=== PATIENT | female | born 1990 | race Caucasian/White ===

== ENCOUNTER 2016-07-07 06:11 | Emergency (ER) | payer OTHER ==
[2016-07-07 07:01] LABS: HEMOGLOBIN 11.1 gm/dl (12.3-15.3); RED BLOOD COUNT 3.72 M/UL (4.00-5.10); WHITE BLOOD COUNT 3.7 K/UL (4.5-11.0)
[2016-07-07 07:23] LABS: BUN/CREATININE RATIO 16 (0-10)
== END 2016-07-07 08:35 | disposition home or self-care (01) ==
LOC: ER1 06:11
PROVIDERS: Family Medicine
DX: F41.9 Anxiety disorder, unspecified (principal); R03.0 Elevated blood-pressure reading, without diagnosis of hypertension; Z79.899 Other long term (current) drug therapy
CPT/HCPCS: 36415; 80053; 82550; 82553; 83874; 84484; 85025; 93005; 99283; Q0177